=== PATIENT | female | born 1985 | race Caucasian/White ===

== ENCOUNTER 2023-11-24 09:53 | Emergency (ER) | payer MEDICAID ==
[~2023-11-24] VITALS: Ht 157.5 cm; Wt 55.0 kg
[2023-11-24 10:17] VITALS: O2SAT 100
[2023-11-24] MEDS: KETOROLAC 30MG/ML VIAL IM ONE (11:07)
[2023-11-24] MEDS: DIPHENHYDRAMINE 50MG/ML VIAL IM ONE (11:07)
[2023-11-24] MEDS: METOCLOPRAMIDE HCL 10MG/2ML VIAL IM ONE (11:07)
[2023-11-24] MEDS ORDERED: ASPI-740 PO (12:11)
[2023-11-24 12:17] VITALS: BP 120/81; PULSE 83; RESP 18; TEMP 36.78072; O2SAT 100
== END 2023-11-24 12:21 | disposition home or self-care (01) ==
LOC: ER 09:53
DX: G43.909 Migraine, unspecified, not intractable, without status migrainosus (principal)
CPT/HCPCS: 81025; 96372; 99284; J1200; J1885; J2765; Z7610 ×2